=== PATIENT | female | born 1955 | race Caucasian/White ===

== ENCOUNTER 2019-08-02 14:59 | Inpatient (IN) | payer OTHER ==
[~2019-08-02] VITALS: Ht 167.6 cm; Wt 129.3 kg
[~2019-08-02 14:59] MED LIST: IRBE300T19 PO; LEVO137T2 PO; PRAV40TA3 PO
[2019-08-02] MEDS ORDERED: LEVO75TA7 PO (16:59)
[2019-08-02] MEDS ORDERED: TELM80TA2 PO (16:59)
[2019-08-02] MEDS ORDERED: FINA5TAB11 PO (16:59)
[2019-08-02] MEDS ORDERED: ARIP2TAB3 PO (16:59)
[2019-08-02] MEDS ORDERED: PRAV40TA3 PO (16:59)
[2019-08-02] MEDS ORDERED: LIOT5TAB11 PO (16:59)
[2019-08-02] MEDS ORDERED: RIVA10TA PO (16:59)
[2019-08-02] MEDS ORDERED: FERR325T28 PO (16:59)
[2019-08-02] MEDS ORDERED: FLUO20CA42 PO (16:59)
[2019-08-02] MEDS ORDERED: METF-440 PO (16:59)
[2019-08-02] MEDS: HYDROCODONE/APAP 5-325MG TABLET PO PRN ×2 (17:55→23:09)
--- NOTE | 2019-08-02 18:28 | NUR ---
Admitted a 64 year old female form [facility] at 1640 BIB [facility] ambulance. Pt. A/Ox4 verbally responsive and able to make her needs known. Pt. stated she had fall from home and required LT. hip replacement. Pt on RA, denies SOB or CP. Dr. Champagne and Dr. Granado promptly made aware of pt. admit. Med recon by Dr. Champagne with additional order for [place] 5-325 mg PO Q4H PRN for pain. All orders noted and carried out accordingly. Per reporting RN, LT. hip dressing should be kept C/D/I until Dr. Stinson (Ortho) sees pt. in [address] Cruz (Onco) to see pt. in 1 week. Will relay info to CM. Pt. full wt. bearing. Does have single point cane for ambulation. Pt. requested F/C, stated she had it at [facility], Dr. Champagne made aware and ok to place F/C. Admission questionnaire completed. Pt. oriented to staff and unit. Safety measures in place. Call light and all frequently used items within pt. reach. Will endorse to oncoming shift accordingly. Addendum: 08/02/19 at 1906 by ALVARO QUINTANILLA RN Pt. educated about risk and benefits of F/C use. Pt. decided to have F/C off at this time. Prefer to use bedpan instead.
[2019-08-02 20:17] VITALS: BP 97/59
[2019-08-02] MEDS: ATORVASTATIN 10 MG TABLET PO SCH (20:42)
[2019-08-03] MEDS: HYDROCODONE/APAP 5-325MG TABLET PO PRN ×5 (03:07→23:42)
--- NOTE | 2019-08-03 03:35 | NUR ---
Received patient in bed. AAO x 4. No acute distress or SOB was noted. Able to make needs known. On room air. Complained of pain on her left hip, rated 7/10 in numeric scale, PRN Narco 5-325 mg administered and effective. Pain assessed and reassessed after pain medication. Physical assessment done. Safety measures maintained. Fall prevention observed. Skin assessed. All due medications administered and tolerated well. All needs attended promptly. Bed in locked and low position, side rails up x2 for safety, bed alarm on. Call light and frequently using items within reach. Continue to monitor and will endorse to day shift nurse.
[2019-08-03 04:48] VITALS: BP 98/60
[2019-08-03] MEDS: LEVOTHYROXINE SODIUM 75 MCG TABLET PO SCH (06:25)
[2019-08-03] MEDS: LIOTHYRONINE SODIUM 5 MCG TABLET PO SCH (06:25)
[2019-08-03] MEDS: ARIPIPRAZOLE 2 MG TABLET PO SCH (08:19)
[2019-08-03 08:21] VITALS: BP 93/61
[2019-08-03] MEDS: LOSARTAN POTASSIUM 50 MG TABLET PO SCH (08:21)
[2019-08-03] MEDS: FINASTERIDE 5 MG TABLET PO SCH (08:22)
[2019-08-03] MEDS: RIVAROXABAN 10 MG TABLET PO SCH (08:22)
[2019-08-03] MEDS: METFORMIN HCL 500 MG TABLET PO SCH ×2 (08:22→17:14)
[2019-08-03] MEDS: FERROUS SULFATE 325 MG TABEC PO SCH ×2 (08:22→17:14)
[2019-08-03] MEDS: FLUOXETINE HCL 20 MG CAPSULE PO SCH ×2 (08:22→17:14)
[2019-08-03] MEDS ORDERED: Medication Not On Formulary EA (Telmisartan (Micardis) 80 MG) PO SCH (09:00)
[2019-08-03 16:00] VITALS: BP 90/46
--- NOTE | 2019-08-03 17:59 | NUR ---
Patient remains alert, oriented x 4, afebrile, not in any form of distress, on room air. Due medications administered and tolerated well. Patient complained of pain on left hip, given PRN pain medication as ordered with noted relief. Needs attended to promptly. Call light and frequently used items placed within patient's reach. Safety measures maintained.
--- NOTE | 2019-08-03 19:35 | NUR ---
Awake during initial rounds lying on her right side. Denies any pain/discomforts at this time. Safety measures and fall precaution maintained. Continue care as planned.
[2019-08-03 20:06] VITALS: BP 90/51
[2019-08-03] MEDS: ATORVASTATIN 10 MG TABLET PO SCH (20:35)
[2019-08-04 04:06] VITALS: BP 102/48
--- NOTE | 2019-08-04 06:02 | NUR ---
Shift End Report: VS stable. Slept good. Medicated once for left thigh pain with relief. No further complaint presented. All needs attended and met. Bed bath given. Good skin/rosalba care rendered after each incontinence. No significant event reported. Continue current rehab plan of care.
[2019-08-04] MEDS: LEVOTHYROXINE SODIUM 75 MCG TABLET PO SCH (06:24)
[2019-08-04] MEDS: LIOTHYRONINE SODIUM 5 MCG TABLET PO SCH (06:24)
[2019-08-04 06:32] LABS: BASOPHILS # (AUTO) 0.1 K/uL (0.0-8.0); BASOPHILS % (AUTO) 0.6 % (0.0-2.0); EOSINOPHILS # (AUTO) 0.8 K/uL (0.0-0.7); EOSINOPHILS % (AUTO) 6.3 % (0.0-7.0); HEMATOCRIT 27.3 % (31.2-41.9); LYMPHOCYTES # (AUTO) 1.7 K/uL (20.0-40.0); LYMPHOCYTES % (AUTO) 14.3 % (20.5-51.5); MEAN CORPUSCULAR HEMOGLOBIN 30.1 uug (24.7-32.8); MEAN CORPUSCULAR HGB CONC 33 g/dL (32.3-35.6); MEAN CORPUSCULAR VOLUME 90.9 fL (75.5-95.3); MONOCYTES # (AUTO) 0.7 K/uL (2.0-10.0); MONOCYTES % (AUTO) 6.2 % (0.0-11.0); NEUTROPHILS # (AUTO) 8.7 K/uL (1.8-8.9); NEUTROPHILS % (AUTO) 72.6 % (38.5-71.5)
[2019-08-04] MEDS: HYDROCODONE/APAP 5-325MG TABLET PO PRN ×2 (06:47→15:07)
[2019-08-04 06:49] LABS: WHITE BLOOD COUNT (AUTO) 11.9 K/uL (3.8-11.8)
[2019-08-04 06:50] LABS: PLATELET COUNT (AUTO) 347 K/uL (179-408)
[2019-08-04 08:00] VITALS: BP 116/55
[2019-08-04] MEDS: FLUOXETINE HCL 20 MG CAPSULE PO SCH ×2 (09:44→16:37)
[2019-08-04] MEDS: FINASTERIDE 5 MG TABLET PO SCH (09:44)
[2019-08-04] MEDS: FERROUS SULFATE 325 MG TABEC PO SCH ×2 (09:46→17:09)
[2019-08-04] MEDS: METFORMIN HCL 500 MG TABLET PO SCH ×2 (09:46→17:09)
[2019-08-04] MEDS: LOSARTAN POTASSIUM 50 MG TABLET PO SCH (09:47)
[2019-08-04] MEDS: ARIPIPRAZOLE 2 MG TABLET PO SCH (09:51)
[2019-08-04] MEDS: RIVAROXABAN 10 MG TABLET PO SCH (09:51)
[2019-08-04 10:53] LABS: BILIRUBIN,TOTAL 0.5 mg/dL (0.2-1.0); CREATININE 1.2 mg/dL (0.6-1.3); MAGNESIUM 2.1 mg/dL (1.8-2.4); PHOSPHOROUS 4.6 mg/dL (2.5-4.9); POTASSIUM 3.7 mmol/L (3.5-5.1); TOTAL PROTEIN, SERUM 6.7 g/dL (6.4-8.2)
--- NOTE | 2019-08-04 12:15 | NUR ---
INTERDISCIPLINARY TEAM CONFERENCE
[2019-08-04 15:41] VITALS: BP 98/52
--- NOTE | 2019-08-04 19:05 | NUR ---
no distress noted, patient participated PT, OT services, pain is well managed with pain medication
--- NOTE | 2019-08-04 19:33 | NUR ---
In bed, on left side lying position, appears asleep when received. HOB elevated. No s/s of respiratory distress. No s/s of any pain/discomforts at this time. Dinner tray sitting at the bedside table at this time, untouched. Safety measures and fall precaution maintained. Continue care as planned.
[2019-08-04 20:18] VITALS: BP 91/49
[2019-08-04] MEDS: ATORVASTATIN 10 MG TABLET PO SCH (20:51)
[2019-08-05] MEDS: HYDROCODONE/APAP 5-325MG TABLET PO PRN ×4 (00:47→20:51)
[2019-08-05 04:44] VITALS: BP 90/55
--- NOTE | 2019-08-05 05:51 | NUR ---
Shift End Report: VS Ok. Denies any s/s of hypotension. Encouraged increased po intake. Medicated once for pain with relief. No further complaint presented. Slept well. No fall/injury. All needs attended and met. No significant event reported all night. Continue current rehab plan of care.
[2019-08-05] MEDS: LIOTHYRONINE SODIUM 5 MCG TABLET PO SCH (06:16)
[2019-08-05] MEDS: LEVOTHYROXINE SODIUM 75 MCG TABLET PO SCH (06:17)
[2019-08-05 06:28] VITALS: BP 94/59
--- NOTE | 2019-08-05 07:48 | NUR ---
Patient noted resting in bed, no facial cues of pain, no signs of distress noted, call light in reach, bed locked and lowest position, all needs met at this time
[2019-08-05] MEDS: FINASTERIDE 5 MG TABLET PO SCH (08:35)
[2019-08-05] MEDS: FLUOXETINE HCL 20 MG CAPSULE PO SCH ×2 (08:35→16:59)
[2019-08-05] MEDS: FERROUS SULFATE 325 MG TABEC PO SCH ×2 (08:35→16:59)
[2019-08-05] MEDS: METFORMIN HCL 500 MG TABLET PO SCH ×2 (08:35→16:59)
[2019-08-05] MEDS: ARIPIPRAZOLE 2 MG TABLET PO SCH (08:41)
[2019-08-05] MEDS: LOSARTAN POTASSIUM 50 MG TABLET PO SCH (08:43)
[2019-08-05] MEDS: RIVAROXABAN 10 MG TABLET PO SCH (08:44)
[2019-08-05 08:46] VITALS: BP 114/61
[2019-08-05] MEDS: ANASTROZOLE 1 MG TABLET PO SCH (08:54)
[2019-08-05 16:06] VITALS: BP 100/61
--- NOTE | 2019-08-05 16:15 | NUR ---
INDIVIDUALIZED PLAN OF CARE
--- NOTE | 2019-08-05 19:07 | NUR ---
no changes this shift, complaints of pain this shift, PRN norco given this shift, all needs met
[2019-08-05 20:00] VITALS: BP 105/54
[2019-08-05] MEDS: ATORVASTATIN 10 MG TABLET PO SCH (20:29)
[2019-08-06 05:01] VITALS: BP 103/54
[2019-08-06] MEDS: LEVOTHYROXINE SODIUM 75 MCG TABLET PO SCH (06:19)
[2019-08-06] MEDS: LIOTHYRONINE SODIUM 5 MCG TABLET PO SCH (06:19)
--- NOTE | 2019-08-06 06:53 | NUR ---
Shift End Report: VS stable. Slept well. No problem/complaint presented. No fall/injury. All needs attended and met. No significant event reported all night. Continue current rehab plan of care
--- NOTE | 2019-08-06 07:50 | NUR ---
Patient noted resting in bed with eyes closed, no facial cues or complaints of pain at this time, no signs of distress noted, call light in reach, bed locked and lowest position, all needs met at this time
[2019-08-06 08:00] VITALS: BP 101/56
[2019-08-06] MEDS: FLUOXETINE HCL 20 MG CAPSULE PO SCH ×2 (08:22→17:56)
[2019-08-06] MEDS: FINASTERIDE 5 MG TABLET PO SCH (08:22)
[2019-08-06] MEDS: METFORMIN HCL 500 MG TABLET PO SCH ×2 (08:23→17:56)
[2019-08-06] MEDS: FERROUS SULFATE 325 MG TABEC PO SCH ×2 (08:23→17:56)
[2019-08-06] MEDS: HYDROCODONE/APAP 5-325MG TABLET PO PRN ×2 (08:23→17:56)
[2019-08-06] MEDS: ANASTROZOLE 1 MG TABLET PO SCH (08:24)
[2019-08-06] MEDS: ARIPIPRAZOLE 2 MG TABLET PO SCH (08:24)
[2019-08-06] MEDS: RIVAROXABAN 10 MG TABLET PO SCH (08:25)
[2019-08-06] MEDS: LOSARTAN POTASSIUM 50 MG TABLET PO SCH (08:26)
[2019-08-06 16:52] VITALS: BP 103/53
--- NOTE | 2019-08-06 18:58 | NUR ---
no changes this shift, medicated twice this shift with PRN [place]
--- NOTE | 2019-08-06 19:20 | NUR ---
Received patient lying in bed. Asleep, easily arouse to verbal stimuli. AOX4. In no acute distress. Denies any pain or SOB at this time. Left hip with dressing intact. Safety measure initiated and call tracy within reached.
[2019-08-06] MEDS: ATORVASTATIN 10 MG TABLET PO SCH (20:11)
[2019-08-06 20:19] VITALS: BP 96/54
[2019-08-07 05:14] VITALS: BP 95/54
--- NOTE | 2019-08-07 06:05 | NUR ---
Slept well last night. Denies any pain or SOB. Left hip with dressing intact. Needs assessed and attended to. Safety measure maintained and call tracy within reached.
[2019-08-07] MEDS: LIOTHYRONINE SODIUM 5 MCG TABLET PO SCH (06:08)
[2019-08-07] MEDS: LEVOTHYROXINE SODIUM 75 MCG TABLET PO SCH (06:09)
[2019-08-07 08:19] VITALS: BP 139/74
[2019-08-07] MEDS: FINASTERIDE 5 MG TABLET PO SCH (08:24)
[2019-08-07] MEDS: FLUOXETINE HCL 20 MG CAPSULE PO SCH ×2 (08:24→17:48)
[2019-08-07] MEDS: FERROUS SULFATE 325 MG TABEC PO SCH ×2 (08:24→17:48)
[2019-08-07] MEDS: METFORMIN HCL 500 MG TABLET PO SCH ×2 (08:24→17:48)
[2019-08-07] MEDS: HYDROCODONE/APAP 5-325MG TABLET PO PRN ×2 (08:26→17:48)
[2019-08-07] MEDS: LOSARTAN POTASSIUM 50 MG TABLET PO SCH (08:26)
[2019-08-07] MEDS: ARIPIPRAZOLE 2 MG TABLET PO SCH (08:28)
[2019-08-07] MEDS: ANASTROZOLE 1 MG TABLET PO SCH (08:29)
[2019-08-07] MEDS: RIVAROXABAN 10 MG TABLET PO SCH (08:29)
[2019-08-07 15:55] VITALS: BP 140/68
[2019-08-07 19:58] VITALS: BP 91/51
[2019-08-07] MEDS: ATORVASTATIN 10 MG TABLET PO SCH (20:37)
--- NOTE | 2019-08-07 20:42 | NUR ---
Received patient lying in bed eyes closed, snoring, asleep. Easily abusable to name AOX4 vitals stable, no signs and symptoms of acute distress noted. Patient is on RA saturating 94%, no SOB noted. Denies any pain or at this time. Left hip dressing intact. Safety measure initiated and call tracy within reached. PM medication administered and take accordingly. All needs attended to and all items within patient reach. Will continue to monitor through the night.
[2019-08-08 04:30] VITALS: BP 97/55
--- NOTE | 2019-08-08 05:39 | NUR ---
Patient slept well through the night. Denies any pain or discomfort. No acute distress noted. All needs attended to promptly. No significant event reported all night. Safety precautions maintained, call light and personal items within patient reach.Continue current rehab plan of care will endorse next shift accordingly.
[2019-08-08] MEDS: LIOTHYRONINE SODIUM 5 MCG TABLET PO SCH (06:05)
[2019-08-08] MEDS: LEVOTHYROXINE SODIUM 75 MCG TABLET PO SCH (06:05)
[2019-08-08 08:49] VITALS: BP 123/71
[2019-08-08] MEDS: METFORMIN HCL 500 MG TABLET PO SCH ×2 (09:07→17:34)
[2019-08-08] MEDS: FINASTERIDE 5 MG TABLET PO SCH (09:07)
[2019-08-08] MEDS: FERROUS SULFATE 325 MG TABEC PO SCH ×2 (09:07→17:34)
[2019-08-08] MEDS: ARIPIPRAZOLE 2 MG TABLET PO SCH (09:08)
[2019-08-08] MEDS: RIVAROXABAN 10 MG TABLET PO SCH (09:10)
[2019-08-08] MEDS: ANASTROZOLE 1 MG TABLET PO SCH (09:13)
[2019-08-08] MEDS: LOSARTAN POTASSIUM 50 MG TABLET PO SCH (09:19)
[2019-08-08] MEDS: FLUOXETINE HCL 20 MG CAPSULE PO SCH ×2 (09:26→17:34)
[2019-08-08] MEDS ORDERED: ONDANSETRON ODT 4 MG TAB.RAPDIS SL PRN (12:15)
[2019-08-08] MEDS: OXYCODONE HCL 5 MG TABLET PO PRN ×2 (12:33→20:35)
--- NOTE | 2019-08-08 14:14 | NUR ---
patient is alert, oriented x4, verbally responsive, no sob, resp even nonlabored,skin warm and dry to touch, patient likes to stay most of the time in the bed, convinced to get up and participate with PT, OT services, patient likes to delay to do her rehab services as much as she can, incision site is clean and dry, stitches are in place, well approximated, rosalba incision line is slightly red, however no signs and symptoms of infection noted, no erythema, no drainage. dressing changed. inspected patient skin, no other skin issues noted, no sacral or coccyx skin issues, no perineal area redness, kept clean and dry, patient totally refused to participate in therapy, patient stated she is tired. convinced patient with physical therapist, still refused. pain medication given as requested, zofran given as ordered, with only some effectiveness, patient is on chemo medication, for right breast cancer, patient spoke to dr lamb oncologist on the phone. appt tomorrow in his office
[2019-08-08 15:20] VITALS: BP 101/63
--- NOTE | 2019-08-08 17:58 | NUR ---
encouraged patient to eat dinner, patient stated no, noted patient with lack of interest in anything, encouraged to express feeling, patient stated she is dying from cancer, and very depress, however denied suicidal thoughts, psych eval ordered, spoke to dr Mustafa to see patient.
[2019-08-08] MEDS: ONDANSETRON 4 MG/2 ML VIAL IV PRN (18:59)
[2019-08-08] MEDS: IV NS 1000 ML 1,000 ML IV PRN (19:01)
--- NOTE | 2019-08-08 19:53 | NUR ---
Received patient laying in bed with eyes closed, asleep, verbally responsive Axox4 but has very flat affect. Lack of interest in self care, does not want to eat, drink, move, and is very upset with her diagnosis. Iv access on left hand hep lock, patent intact running 100ml/hr NS. Skin dry and intact. Patient denies any pain or discomfort at the time. Nausea is relived by IV Zofran. Safety precautions maintained, call light and all personal items within reach. All needs attended to. Encouraged patient to sit up and drink water, and eat a snack, patient refused. will continue to encourage through the night. Will continue to monitor.
[2019-08-08 20:00] VITALS: BP 120/57
[2019-08-08] MEDS: ATORVASTATIN 10 MG TABLET PO SCH (20:23)
--- NOTE | 2019-08-08 22:00 | NUR ---
Patient complained of pain 7/10 left hip, requested oxycodone, administered and effective. PM care completed, all needs attended to promptly. Patient is resting comfortably. All items within reach, safety measure maintained. Continue to monitor through the night.
[2019-08-09] MEDS: IV NS 1000 ML 1,000 ML IV PRN ×2 (04:23→17:23)
--- NOTE | 2019-08-09 05:07 | NUR ---
Patient slept well through the night. Denies any pain or discomfort. Skin clean and dry. IV site 22G left hand intact and patent running NS 100ml/hr. No acute distress noted. All needs attended to promptly. No significant event reported all night. Safety precautions maintained, call light and personal items within patient reach.Continue current rehab plan of care will endorse next shift accordingly.
[2019-08-09] MEDS: LIOTHYRONINE SODIUM 5 MCG TABLET PO SCH (06:02)
[2019-08-09] MEDS: HYDROCODONE/APAP 5-325MG TABLET PO PRN (06:03)
[2019-08-09] MEDS: LEVOTHYROXINE SODIUM 75 MCG TABLET PO SCH (06:03)
[2019-08-09 06:08] VITALS: BP 103/61
[2019-08-09 08:00] VITALS: BP 99/50
[2019-08-09] MEDS: FINASTERIDE 5 MG TABLET PO SCH (08:44)
[2019-08-09] MEDS: FERROUS SULFATE 325 MG TABEC PO SCH ×2 (08:44→17:22)
[2019-08-09] MEDS: METFORMIN HCL 500 MG TABLET PO SCH ×2 (08:44→17:22)
[2019-08-09] MEDS: FLUOXETINE HCL 20 MG CAPSULE PO SCH (08:44)
[2019-08-09] MEDS: ARIPIPRAZOLE 2 MG TABLET PO SCH (08:45)
[2019-08-09] MEDS: LOSARTAN POTASSIUM 50 MG TABLET PO SCH (08:50)
[2019-08-09] MEDS: RIVAROXABAN 10 MG TABLET PO SCH (08:54)
[2019-08-09] MEDS: ANASTROZOLE 1 MG TABLET PO SCH (08:55)
--- NOTE | 2019-08-09 11:00 | NUR ---
patient offered many times to change, finally agreed, and changed, kept clean, and dry, offered patient to do oral care, and nurse will wash her hair, patient refused, continue to convince patient, right to refuse respected
[2019-08-09] MEDS: ONDANSETRON 4 MG/2 ML VIAL IV PRN ×2 (11:25→17:44)
[2019-08-09] MEDS: OXYCODONE HCL 5 MG TABLET PO PRN (11:26)
[2019-08-09] MEDS: OXYCODONE HCL 10 MG TAB.SR.12H PO SCH ×2 (15:50→21:16)
--- NOTE | 2019-08-09 15:53 | NUR ---
patient slept almost whole day, refused PT,OT services, complained about nausea, zofran administered, effective, patient ate pudding and drank ensure, went back to sleep, IV fluids are running as ordered, kept clean and dry, examined by psychiatrist, with new medication to start for depression. incision site is clean and dry, no signs and symptoms of infection noted, no other skin issues noted, continuie to monitor and convince to participate in adls. Addendum: 08/09/19 at 1625 by PATTIE UMANA RN, RN incision site is clean and dry, well approximated, najma are intact, spoke to kenny from dr bhandari office, for further instructions. per kenny follow up in 2-4 weeks, field nurse case manager is aware Addendum: 08/09/19 at 1806 by PATTIE UMANA RN, RN patient drank ensure for dinner, convinced to eat dinner, offered different choices, patient stated she does not have interest in eating right now. will continue to monitor Addendum: 08/09/19 at 1903 by PATTIE UMANA RN RN patient offered changing, refused x3, and patient stated' " I am fine, pls leave me alone for now" offered times 3 at different times. will endorse accordingly to convince the patient.
[2019-08-09 16:00] VITALS: BP 107/55
[2019-08-09] MEDS ORDERED: DULOXETINE 30 MG CAPSULE.DR PO SCH (17:00)
[2019-08-09 20:00] VITALS: BP 103/50
[2019-08-09] MEDS: ATORVASTATIN 10 MG TABLET PO SCH (21:15)
--- NOTE | 2019-08-09 21:25 | NUR ---
received patient in bed awake alert and oriented x3-4 . Left hip dressing clean dry and intact. VSS. No acute distress noted. IVF's infusing well via left arm heplock. Tolerated po meds well. Compliant with meds. Patient incontinent of urine x2. Kept clean and dry. Fall precautions maintained. Call tracy within reach. Needs attended.
[2019-08-10 04:00] VITALS: BP 101/56
[2019-08-10 06:33] LABS: BASOPHILS % (AUTO) 0.5 % (0.0-2.0); EOSINOPHILS # (AUTO) 0.7 K/uL (0.0-0.7); HEMOGLOBIN 8.7 g/dL (10.9-14.3); LYMPHOCYTES # (AUTO) 1.5 K/uL (20.0-40.0); MONOCYTES # (AUTO) 0.4 K/uL (2.0-10.0)
[2019-08-10] MEDS: OXYCODONE HCL 10 MG TAB.SR.12H PO SCH ×3 (06:37→21:40)
[2019-08-10] MEDS: LIOTHYRONINE SODIUM 5 MCG TABLET PO SCH (06:37)
[2019-08-10] MEDS: LEVOTHYROXINE SODIUM 125 MCG TABLET PO SCH (06:38)
[2019-08-10 06:46] LABS: BASOPHILS # (AUTO) 0.1 K/uL (0.0-8.0); EOSINOPHILS % (AUTO) 7.5 % (0.0-7.0); HEMATOCRIT 26.1 % (31.2-41.9); LYMPHOCYTES % (AUTO) 15.6 % (20.5-51.5); MEAN CORPUSCULAR HEMOGLOBIN 30.5 uug (24.7-32.8); MEAN CORPUSCULAR HGB CONC 33 g/dL (32.3-35.6); MEAN CORPUSCULAR VOLUME 91.6 fL (75.5-95.3); MONOCYTES % (AUTO) 3.9 % (0.0-11.0); NEUTROPHILS # (AUTO) 6.8 K/uL (1.8-8.9); NEUTROPHILS % (AUTO) 72.5 % (38.5-71.5); PLATELET COUNT (AUTO) 338 K/uL (179-408); RED BLOOD CELL COUNT(AUTO) 2.85 MIL/uL (3.63-4.92); WHITE BLOOD COUNT (AUTO) 9.4 K/uL (3.8-11.8)
[2019-08-10 06:50] LABS: BILIRUBIN,TOTAL 0.3 mg/dL (0.2-1.0); CREATININE 1.1 mg/dL (0.6-1.3); MAGNESIUM 2.2 mg/dL (1.8-2.4); PHOSPHOROUS 3.6 mg/dL (2.5-4.9); POTASSIUM 3.7 mmol/L (3.5-5.1); TOTAL PROTEIN, SERUM 6.3 g/dL (6.4-8.2)
[2019-08-10] MEDS ORDERED: LEVOTHYROXINE SODIUM 75 MCG TABLET PO SCH (07:00)
--- NOTE | 2019-08-10 07:13 | NUR ---
End of shift notes: Quiet night. Slept most shift. Compliant with meds. No acute distress noted.Vss IVF's infusing well. On scheduled Oxycontin 10mg as ordered. Left hip dressing clean and dry. Incontinent of bowel and bladder. No BM noted. Will monitor patient.
[2019-08-10 08:28] VITALS: BP 128/63
[2019-08-10] MEDS: FERROUS SULFATE 325 MG TABEC PO SCH ×2 (08:38→17:17)
[2019-08-10] MEDS: LOSARTAN POTASSIUM 50 MG TABLET PO SCH (08:38)
[2019-08-10] MEDS: FINASTERIDE 5 MG TABLET PO SCH (08:38)
[2019-08-10] MEDS: METFORMIN HCL 500 MG TABLET PO SCH ×2 (08:38→17:18)
[2019-08-10] MEDS: ARIPIPRAZOLE 2 MG TABLET PO SCH (08:43)
[2019-08-10] MEDS: ANASTROZOLE 1 MG TABLET PO SCH (08:44)
[2019-08-10] MEDS: RIVAROXABAN 10 MG TABLET PO SCH (08:45)
[2019-08-10] MEDS ORDERED: FLUOXETINE HCL 20 MG CAPSULE PO SCH (09:00)
[2019-08-10] MEDS ORDERED: FLUOXETINE HCL 10 MG CAPSULE PO SCH (09:00)
[2019-08-10 14:37] VITALS: BP 95/61
[2019-08-10] MEDS ORDERED: DULOXETINE 30 MG CAPSULE.DR PO SCH (17:00)
[2019-08-10] MEDS: DULOXETINE 60 MG CAPSULE.DR PO SCH (17:17)
[2019-08-10 20:12] VITALS: BP 83/46
[2019-08-10] MEDS: ONDANSETRON 4 MG/2 ML VIAL IV PRN (21:40)
[2019-08-10] MEDS: ATORVASTATIN 10 MG TABLET PO SCH (21:40)
--- NOTE | 2019-08-10 23:00 | NUR ---
Received patient lying in bed eyes closed, snoring, asleep. Easily abusable to name AOX4 vitals stable, no signs and symptoms of acute distress noted. Patient is on RA no SOB noted. Denies any pain or at this time. Left hip dressing intact. Safety measure initiated and call tracy within reached. PM medication administered and take accordingly. patient complains of nausea administer Zofran IV push, effective. Pt is comfortable and asleep. All needs attended to and all items within patient reach. Will continue to monitor through the night.
[2019-08-10] MEDS: IV NS 1000 ML 1,000 ML IV PRN (23:14)
[2019-08-11 04:12] VITALS: BP 92/31
[2019-08-11] MEDS: LEVOTHYROXINE SODIUM 125 MCG TABLET PO SCH (06:53)
[2019-08-11] MEDS: OXYCODONE HCL 10 MG TAB.SR.12H PO SCH ×3 (06:53→21:34)
[2019-08-11] MEDS: LIOTHYRONINE SODIUM 5 MCG TABLET PO SCH (06:53)
[2019-08-11] MEDS: ONDANSETRON 4 MG/2 ML VIAL IV PRN (06:57)
--- NOTE | 2019-08-11 07:01 | NUR ---
patient complained of nausea, requested medication, administered Zofran as per request.
[2019-08-11] MEDS: LOSARTAN POTASSIUM 50 MG TABLET PO SCH (09:00)
[2019-08-11] MEDS: ANASTROZOLE 1 MG TABLET PO SCH (09:31)
[2019-08-11] MEDS: METFORMIN HCL 500 MG TABLET PO SCH ×2 (09:32→17:20)
[2019-08-11] MEDS: FINASTERIDE 5 MG TABLET PO SCH (09:32)
[2019-08-11] MEDS: FERROUS SULFATE 325 MG TABEC PO SCH ×2 (09:33→17:21)
[2019-08-11] MEDS: ARIPIPRAZOLE 2 MG TABLET PO SCH (09:33)
[2019-08-11] MEDS: RIVAROXABAN 10 MG TABLET PO SCH (09:34)
[2019-08-11 09:43] VITALS: BP 98/57
--- NOTE | 2019-08-11 10:23 | NUR ---
Received patient awake in bed. Isolated, alert and orientedx4. Patient SPO2 fluctuationg 89-95%. Encourage patient to take a deep breath. Patient refuse oxygen via nasal cannula. Patient verbalize she feels the same. not in distress. Patient refuse for care. Patient is compliant with medication. no complaint of pain/discomfort. no c/o fo nausea. will continue monitor Addendum: 08/11/19 at 1045 by LIZBETH RESENDIZ RN RN Patient increase SPO2 to 95%. not in distress.
--- NOTE | 2019-08-11 12:19 | NUR ---
Patient continue refusing care and refuse to eat lunch meal. will continue monitor
--- NOTE | 2019-08-11 14:10 | NUR ---
Patient foul smell noted. Patient was offered for shower. Patient refuse shower despite of encouragement.
--- NOTE | 2019-08-11 15:48 | NUR ---
Patient covid19 test done. Patient left hip x-ray done. Awaiting for result. Patient continue IV 0.9 NS 100cc/hr. Patient continue consumed 5-20% meals despite of encouragement. not in distress.will continue monitor
[2019-08-11 16:29] VITALS: BP 101/54
[2019-08-11] MEDS: IV NS 1000 ML 1,000 ML IV PRN (16:41)
[2019-08-11] MEDS: DULOXETINE 60 MG CAPSULE.DR PO SCH (17:20)
--- NOTE | 2019-08-11 17:36 | NUR ---
Patient refuse dressing change despite of encouragement and education. Patient dressing is clean, intact, no foul smell noted.
[2019-08-11 20:12] VITALS: BP 99/58
[2019-08-11] MEDS: ATORVASTATIN 10 MG TABLET PO SCH (21:34)
[2019-08-12 04:09] VITALS: BP 99/58
--- NOTE | 2019-08-12 04:18 | NUR ---
Received patient in bed. AAO x 4. No acute distress or SOB was noted. Able to make needs known. On 2 L O2 via NC. Complained of pain on her left hip, rated 7/10 in numeric scale, scheduled Oxycodone 10 mg administered and effective. IV in her left hand, no sign of inflammation. Pain assessed and reassessed after pain medication. Physical assessment done. Safety measures maintained. Fall prevention observed. Skin assessed. All due medications administered and tolerated well. All needs attended promptly. Bed in locked and low position, side rails up x2 for safety, bed alarm on. Call light and frequently using items within reach. Continue to monitor and will endorse to day shift nurse.
[2019-08-12] MEDS: IV NS 1000 ML 1,000 ML IV PRN (04:30)
[2019-08-12] MEDS: LIOTHYRONINE SODIUM 5 MCG TABLET PO SCH (06:19)
[2019-08-12] MEDS: LEVOTHYROXINE SODIUM 125 MCG TABLET PO SCH (06:19)
[2019-08-12] MEDS: OXYCODONE HCL 10 MG TAB.SR.12H PO SCH ×3 (06:20→22:49)
[2019-08-12] MEDS: METFORMIN HCL 500 MG TABLET PO SCH ×2 (08:00→18:00)
[2019-08-12] MEDS: LOSARTAN POTASSIUM 50 MG TABLET PO SCH (09:00)
--- NOTE | 2019-08-12 10:23 | NUR ---
Patient is AAO x 4, able to express needs. NO acute distress noted. Patient sleeping at this time, stating she wants to sleep for now and to hold medications. Patient ate a small portion of breakfast. IV hydration in order and in place; IV site on left hand intact and patent. Safety measures in place and will continue with care.
[2019-08-12] MEDS: ARIPIPRAZOLE 2 MG TABLET PO SCH (12:46)
[2019-08-12] MEDS: FINASTERIDE 5 MG TABLET PO SCH (12:46)
[2019-08-12] MEDS: RIVAROXABAN 10 MG TABLET PO SCH (12:48)
[2019-08-12] MEDS: ANASTROZOLE 1 MG TABLET PO SCH (12:48)
[2019-08-12] MEDS: FERROUS SULFATE 325 MG TABEC PO SCH ×2 (12:52→18:00)
--- NOTE | 2019-08-12 13:00 | NUR ---
Morning meds administered late per patient request and tolerated well.
[2019-08-12 16:34] VITALS: BP 105/59
[2019-08-12] MEDS: DULOXETINE 60 MG CAPSULE.DR PO SCH (17:00)
--- NOTE | 2019-08-12 18:56 | NUR ---
IV hydration still on going as ordered. IV site on left inner FA intact and patent. Patient ate small portion of dinner during shift. Refused to eat breakfast and lunch during shift. Patient was able to tolerate nourishments. Skin kept clean and dry. Made comfortable. Need attended on anticipation, call light left within easy reach and will continue with care.
[2019-08-12 20:46] VITALS: BP 115/65
[2019-08-12] MEDS: ATORVASTATIN 10 MG TABLET PO SCH (22:49)
[2019-08-13] MEDS: IV NS 1000 ML 1,000 ML IV PRN ×2 (00:07→10:21)
--- NOTE | 2019-08-13 04:44 | NUR ---
Received patient in bed. AAO x 4. No acute distress or SOB was noted. Able to make needs known. On 2 L O2 via NC. Complained of pain on her left hip, rated 6/10 in numeric scale, scheduled Oxycodone 10 mg administered and effective. IV in her left FA, no sign of inflammation. NS 0.9% running at the rate of 100 ml/hour. Pain assessed and reassessed after pain medication. Physical assessment done. Safety measures maintained. Fall prevention observed. Skin assessed. All due medications administered and tolerated well. All needs attended promptly. Bed in locked and low position, side rails up x2 for safety, bed alarm on. Call light and frequently using items within reach. Continue to monitor and will endorse to day shift nurse.
[2019-08-13 05:55] VITALS: BP 99/65
[2019-08-13] MEDS: LIOTHYRONINE SODIUM 5 MCG TABLET PO SCH (06:15)
[2019-08-13] MEDS: LEVOTHYROXINE SODIUM 150 MCG TABLET PO SCH (06:15)
[2019-08-13] MEDS: OXYCODONE HCL 10 MG TAB.SR.12H PO SCH ×3 (06:16→20:54)
[2019-08-13] MEDS ORDERED: LEVOTHYROXINE SODIUM 125 MCG TABLET PO SCH (07:00)
[2019-08-13] MEDS: METFORMIN HCL 500 MG TABLET PO SCH ×2 (08:00→17:57)
[2019-08-13] MEDS: LOSARTAN POTASSIUM 25 MG TABLET PO SCH (09:00)
--- NOTE | 2019-08-13 09:00 | NUR ---
Held morning dose of Metformin because patient did not eat breakfast.
[2019-08-13] MEDS: FINASTERIDE 5 MG TABLET PO SCH (09:38)
[2019-08-13] MEDS: ARIPIPRAZOLE 2 MG TABLET PO SCH (09:38)
[2019-08-13] MEDS: FERROUS SULFATE 325 MG TABEC PO SCH ×2 (09:38→17:57)
[2019-08-13] MEDS: RIVAROXABAN 10 MG TABLET PO SCH (09:39)
[2019-08-13] MEDS: ANASTROZOLE 1 MG TABLET PO SCH (09:40)
--- NOTE | 2019-08-13 09:57 | NUR ---
Patient is aao x 4, no acute distress noted, able to express self; NC in place at 2lpm with O2 saturating at 95%. Other vital signs stable for patient. denies pain at this time. due medications administered as ordered and scheduled. patient refused breakfast was able to eat some nourishments. IV line on left inner FA arm intact and patent, PRN IV NS being administered at this time. left hip surgical site dressing dry and intact. skin kept clean and dry. offered patient a shower several times but patient refused. needs attended on anticipation, call light left at bed side and will continue with care.
[2019-08-13 11:40] VITALS: BP 103/60
[2019-08-13] MEDS: ONDANSETRON 4 MG/2 ML VIAL IV PRN ×2 (14:17→21:30)
[2019-08-13] MEDS: DULOXETINE 60 MG CAPSULE.DR PO SCH (17:57)
[2019-08-13 20:00] VITALS: BP 141/61
[2019-08-13] MEDS: ATORVASTATIN 10 MG TABLET PO SCH (20:54)
--- NOTE | 2019-08-13 23:00 | NUR ---
Received patient in bed. AAO x 4. No acute distress or SOB was noted. Able to make needs known. Patient is not taking care of herself, refusing to take a shower or wash her hair. PM care completed, changed linen and perineal care done. Patient off Oxygen saturating @ 98%. Complained of pain on her left hip, rated 7/10 in numeric scale, scheduled Oxycodone 10 mg administered and effective. IV in her left FA, no sign of inflammation, intact and patent. NS 0.9% running at the rate of 100 ml/hour. Pain assessed and reassessed after pain medication. Physical assessment done, skin intact no new changes. Safety measures maintained. Fall prevention observed. Skin assessed. All due medications administered and tolerated well. patient requested Zofran for nausea, administered and effective. All needs attended promptly. Bed in locked and low position, side rails up x2 for safety, bed alarm on. Call light and frequently using items within reach. Continue to monitor and will endorse to day shift nurse.
[2019-08-14] MEDS: OXYCODONE HCL 10 MG TAB.SR.12H PO SCH ×3 (05:30→21:07)
[2019-08-14 05:38] VITALS: BP 113/72
--- NOTE | 2019-08-14 05:52 | NUR ---
IV hydration still on going as ordered. IV site on left inner FA intact and patent. Skin kept clean and dry. Made comfortable. Needs attended to, call light left within easy reach and safety measure in place. Will continue with care.
[2019-08-14] MEDS: LIOTHYRONINE SODIUM 5 MCG TABLET PO SCH (06:01)
[2019-08-14] MEDS: LEVOTHYROXINE SODIUM 150 MCG TABLET PO SCH (06:02)
[2019-08-14] MEDS: FINASTERIDE 5 MG TABLET PO SCH (08:51)
[2019-08-14] MEDS: ARIPIPRAZOLE 2 MG TABLET PO SCH (08:51)
[2019-08-14] MEDS: ANASTROZOLE 1 MG TABLET PO SCH (08:53)
[2019-08-14] MEDS: RIVAROXABAN 10 MG TABLET PO SCH (08:53)
[2019-08-14] MEDS: LOSARTAN POTASSIUM 25 MG TABLET PO SCH (08:59)
[2019-08-14] MEDS: FERROUS SULFATE 325 MG TABEC PO SCH ×2 (09:00→17:06)
[2019-08-14] MEDS: METFORMIN HCL 500 MG TABLET PO SCH ×2 (09:00→17:06)
[2019-08-14 16:42] VITALS: BP 103/64
[2019-08-14] MEDS: DULOXETINE 60 MG CAPSULE.DR PO SCH (17:06)
[2019-08-14 20:00] VITALS: BP 107/57
[2019-08-14] MEDS: ATORVASTATIN 10 MG TABLET PO SCH (21:06)
[2019-08-14] MEDS: ONDANSETRON 4 MG/2 ML VIAL IV PRN (21:06)
[2019-08-15 04:00] VITALS: BP 117/64
--- NOTE | 2019-08-15 04:44 | NUR ---
Received patient lying in bed sleeping, very flat affect, no desire to move. Patient is aao x 4, no acute distress noted, able to express self; O2 saturating at 97% on RA. Other vital signs stable for patient. Complains of 7/10 pain at this time as well as feeling nauseous. Due medications administered as ordered and scheduled, and administered Zofran IV push for nausea, effective. IV in left inner arm no longer patent, established new IV access on left outer forearm, intact and patent. Left hip surgical site dressing dry and intact. skin kept clean and dry. offered patient a shower several times but patient refused. needs attended in timely manner, safety measure in place, call light left at bed side and all personal items within reach. Will continue with care.
[2019-08-15] MEDS: LEVOTHYROXINE SODIUM 150 MCG TABLET PO SCH (06:02)
[2019-08-15] MEDS: LIOTHYRONINE SODIUM 5 MCG TABLET PO SCH (06:02)
[2019-08-15] MEDS: OXYCODONE HCL 10 MG TAB.SR.12H PO SCH ×3 (06:03→21:06)
[2019-08-15 07:30] VITALS: BP 98/59
[2019-08-15] MEDS: LOSARTAN POTASSIUM 25 MG TABLET PO SCH (09:00)
[2019-08-15] MEDS: FINASTERIDE 5 MG TABLET PO SCH (09:43)
[2019-08-15] MEDS: ANASTROZOLE 1 MG TABLET PO SCH (09:44)
[2019-08-15] MEDS: ARIPIPRAZOLE 2 MG TABLET PO SCH (09:45)
[2019-08-15] MEDS: RIVAROXABAN 10 MG TABLET PO SCH (09:47)
[2019-08-15] MEDS: METFORMIN HCL 500 MG TABLET PO SCH ×2 (09:47→17:03)
[2019-08-15] MEDS: FERROUS SULFATE 325 MG TABEC PO SCH ×2 (09:47→17:03)
--- NOTE | 2019-08-15 15:29 | NUR ---
Received patient sleeping in bed. Isolated. Alert and orientedx4. no complaint voiced during rounds. Refuse shower and care. Refuse therapy despite of encouragement, education and giving pain medicine prior to discharge. Refuse dressing change. As per pillowcase cleaner, Adrian, Patient will be discharge tomorrow to [facility]. No time schedule yet. will update tomorrow. Disc for left hip x-ray and TMS for sign at the chart. Patient refuse to eat full meals. Agree to take glucerna. Patient complaint with medications. not in distress. Continue PRN oxygen via nasal cannula for low saturation. will continue monitor
[2019-08-15 16:00] VITALS: BP 112/69
[2019-08-15] MEDS: DULOXETINE 60 MG CAPSULE.DR PO SCH (17:03)
[2019-08-15 20:00] VITALS: BP_SYST 108; BP_SYST 122; BP_DIAS 56; BP_DIAS 62
[2019-08-15] MEDS: ATORVASTATIN 10 MG TABLET PO SCH (21:05)
--- NOTE | 2019-08-15 23:20 | NUR ---
Resting in bed upon initial rounds. AAOx 3-4 Needs attended. VSS. compliant with meds. Tolerated po meds well. Left hip dressing intact with najma. On pain management. Patient on Oxy 10 mg given as scheduled. Incontinent of urine x2 Kept clean and dry. Refused to go to the BR. No BM this shift. Fall precautions maintained. Will monitor patient. Siderails up for safety.
[2019-08-16 04:00] VITALS: BP 116/62
[2019-08-16] MEDS: OXYCODONE HCL 10 MG TAB.SR.12H PO SCH ×2 (05:54→15:00)
[2019-08-16] MEDS: LEVOTHYROXINE SODIUM 150 MCG TABLET PO SCH (06:09)
[2019-08-16] MEDS: LIOTHYRONINE SODIUM 5 MCG TABLET PO SCH (06:09)
--- NOTE | 2019-08-16 06:34 | NUR ---
End of shift notes: Slept most of the shift. Patient refused to get OOB . Non compliant with care. Incontinent of large amount of urine x3. Kept clean and dry. Will monitor patient. Urine foul smelling. Compliant with pain meds. No distress noted. Kept comfortable.VSS.
[2019-08-16 08:37] VITALS: BP 107/66
[2019-08-16] MEDS: FINASTERIDE 5 MG TABLET PO SCH (09:15)
[2019-08-16] MEDS: ARIPIPRAZOLE 2 MG TABLET PO SCH (09:16)
[2019-08-16] MEDS: METFORMIN HCL 500 MG TABLET PO SCH (09:16)
[2019-08-16] MEDS: LOSARTAN POTASSIUM 25 MG TABLET PO SCH (09:16)
[2019-08-16] MEDS: FERROUS SULFATE 325 MG TABEC PO SCH (09:16)
[2019-08-16] MEDS: RIVAROXABAN 10 MG TABLET PO SCH (09:22)
[2019-08-16] MEDS: ANASTROZOLE 1 MG TABLET PO SCH (09:22)
[2019-08-16 16:19] VITALS: BP 131/75
--- NOTE | 2019-08-16 16:36 | NUR ---
Discharge note: Pt. deemed safe for discharge today 08/16/[address] Granado. with order transfer pt. to [facility] for continuation of care. Dr. Hernandez made aware as well with TO for TMS to continue all medications as previously prescribed. Pt. aware of transfer and amenable. Place call to [facility] and spoke with Mack RN Director Of Conservation. Report given to receiving RN with no further concern. No changes in pt. cognition, Pt. remain A/Ox4, verbally responsive and able to make her needs known. All due medications given as ordered with no ASE. Pain well manage. Skin assessment completed, photo taken of LT surgical incision with najma. Dressing changed. PIV d/c, pt. tolerated procedure well. Pt. signed discharge papers. All belongings accountable for, pt. signed belongings form. [facility] on-st at [id number], report provided to receiving staff, no further question from staff. Discharge packet given to [facility] staff. Pt. left unit via amie @ [phone] in stable condition with all her belongings.
== END 2019-08-16 16:35 | DRG 560 ==
PROVIDERS: ADMIT Physical Medicine & Rehabilitation Pain Medicine; ATTEND Physical Medicine & Rehabilitation Pain Medicine
DX: M84.552D Pathological fracture in neoplastic disease, left femur, subsequent encounter for fracture with routine healing (principal); C79.51 Secondary malignant neoplasm of bone; F33.3 Major depressive disorder, recurrent, severe with psychotic symptoms; M84.550D Pathological fracture in neoplastic disease, pelvis, subsequent encounter for fracture with routine healing; C50.911 Malignant neoplasm of unspecified site of right female breast; E03.9 Hypothyroidism, unspecified; E11.9 Type 2 diabetes mellitus without complications; Z96.649 Presence of unspecified artificial hip joint; I10 Essential (primary) hypertension; N64.4 Mastodynia; Z91.81 History of falling; Z96.642 Presence of left artificial hip joint; R11.0 Nausea; Z88.2 Allergy status to sulfonamides; E66.01 Morbid (severe) obesity due to excess calories
CPT/HCPCS: 36415; 73501; 83735; 84100; 84443; 84480; 85025; A4663; J2405; J7030; Q0162; U0003-CS